=== PATIENT | male | born 1960 | race Caucasian/White ===

== ENCOUNTER 2020-11-01 14:06 | Emergency (ER) | payer OTHER, SELFPAY ==
[2020-11-01 14:23] VITALS: BP 173/84; PULSE 86; RESP 18; TEMP 37.3; O2SAT 93; BMI 28.8
--- NOTE | 2020-11-01 14:23 | DI.RAD.S_ITS ---
PROCEDURE: XR TIBIA FUBULA RT 2V INDICATIONS: Swelling and injury TECHNIQUE: 2 views of the tibia and fibula were acquired. COMPARISON: None. FINDINGS: Bones: No fractures or dislocations. No suspicious bony lesions. Soft tissues: No suspicious soft tissue calcifications or masses. IMPRESSION: No evidence acute bony abnormality of the right tibia and fibula Dictated by: Virgil Quintanilla M.D. on 11/01/2020 at 14:12 Approved by: Virgil Quintanilla M.D. on 11/01/2020 at 14:14
--- NOTE | 2020-11-01 15:17 | ED_ITS ---
HPI - Extremity Injury (Lower) General Chief Complaint: Extremity Injury, Lower Stated Complaint: Poss Broken Right Leg Time Seen by Provider: 11/01/20 15:00 Source: patient and family Mode of arrival: Wheelchair Limitations: no limitations History of Present Illness HPI Narrative: patient is a 60-year-old male here for evaluation of an injury to his right tejada. He states that prior to arrival he was climbing down of the back of his tailgate onto a ladder on some rocks in the ladder gave out under him. Hit his head but there was no loss of consciousness. He reports no other injuries except for the contusion on the front of his right tejada. He was able to walk afterwards but since that time has become more difficult for him. Did cover with ice prior to arrival. Review of Systems Constitutional Constitutional: Denies frequent falls and Denies headache(s) ENT Ears, Nose, Mouth, and Throat: Denies vertigo, Denies dizziness and Denies headache(s) Musculoskeletal Comments: Right lower leg pain Integumentary/Breasts Comments: bruising to right lower leg Neurologic Neurologic: Denies vertigo, Denies dizziness, Denies frequent falls and Denies headache(s) Hematologic/Lymphatic On Anticoagulants: No Allergic/Immunologic Allergic/Immunologic: Reports system reviewed and no additional complaints, except as documented Patient History Surgical History H/O bilateral hip replacements Social History Smoking Status: Never smoker Smoking Status: Never smoker Substance Use Type: does not use Exam Initial Vital Signs Initial Vital Signs: Vital Signs Temperature 99.2 F 11/01/20 14:23 Pulse Rate 86 11/01/20 14:23 Respiratory Rate 18 11/01/20 14:23 Blood Pressure 173/84 H 11/01/20 14:23 Pulse Oximetry 93 11/01/20 14:23 Const General: cooperative and comfortable Limitations: mental status not altered HENCT Head: normal to inspection and normocephalic Resp Effort & Inspection: normal respiratory effort Cardio Pulses: dorsalis pedis present on the right Back/Spine/Pelvis Cervical Spine: No cervical spinal tenderness Skin Other: patient does have a pinpoint break in the skin over the area bruising. There is then a 5 cm x 5 cm raised area on the medial aspect of the tejada at mid shaft. Is tender to touch. Extrem General: normal to inspection and capillary refill normal Other: Patient able to do bilateral straight leg raise. Right knee and right ankle unremarkable. Left lower extremity is unremarkable. Bilateral shoulders and upper extremities unremarkable. Psych Appearance: grossly normal and well kempt Scores GCS Les coma scale eye opening: Spontaneous [place] coma scale verbal response: Orientated [place] coma scale motor response: Obey commands [place] coma scale total score: 15 Nexus Score for C-Spine Focal Neurologic deficit present: No Midline spinal tenderness present: No Altered level of conciousness present: No Intoxication present: No Distracting Injury Present: No Nexus Criteria for C-spine: 0 Course Orders Ordered: ED Orders 11/01/20 14:23 XR tibia fibula RT 2V Stat Vital Signs Vital signs: Vital Signs - 8 hr 11/01/20 14:23 Temperature 99.2 F Pulse Rate 86 Respiratory Rate 18 Blood Pressure 173/84 H Pulse Oximetry 93 MDM - Extremity Injury (Lower) Imaging Data Extremity x-ray #1: Radiologist's Impression: [address] [id number] ReportSigned Patient: Tomas Rutherford#: [id number]: [id number]:[id number]/Sex: 60 / MDate of Service: 11/01/20Loc: EDAccession Number: [id number] Procedure: XR tibia fibula RT 2V Ordering Provider: Rema Gayle D.O. PROCEDURE: XR TIBIA FUBULA RT 2V INDICATIONS: Swelling and injury TECHNIQUE: 2 views of the tibia and fibula were acquired. COMPARISON: None. FINDINGS: Bones: No fractures or dislocations. No suspicious bony lesions. Soft tissues: No suspicious soft tissue calcifications or masses. IMPRESSION: No evidence acute bony abnormality of the right tibia and fibula Dictated by: Virgil Quintanilla M.D. on 11/01/2020 at 14:12 Approved by: Virgil Quintanilla M.D. on 11/01/2020 at 14:14 [facility] Narrative Medical decision making narrative: There were no fractures noted on the x- rays. His compartments are soft. He has no neck pain. No other injuries reported from the event. He does have a 5 cm x 5 cm hematoma under the very small skin break. There is no need for repair here in the ER. Did discuss with him return precautions to include symptoms of compartment syndrome which I do not think he has today verses infection which also did not think that he has. Did discuss elevation and ice. He expressed understanding and agreement. Discharge Plan Departure Patient Disposition: Home Clinical Impression: Contusion of lower leg, right Instructions: DI for Contusion Activity Restrictions/Additional Instructions: there were no fractures noted on the x-ray. I do recommend keeping your leg elevated and also using ice like we discussed. You are only limited in your activity by the discomfort that you are having. return to the emergency department for any new or worsening symptoms Referrals: Miscellaneous,Doctor, MD [Primary Care Provider] -
== END 2020-11-01 15:34 | disposition home or self-care (01) ==
PROVIDERS: Emergency Provider Emergency Medicine
DX: S80.11XA Contusion of right lower leg, initial encounter (principal); S09.90XA Unspecified injury of head, initial encounter; W19.XXXA Unspecified fall, initial encounter
CPT/HCPCS: 73590; 99283; 99284